=== PATIENT | female | born 2000 | race African-American/Black ===

== ENCOUNTER 2019-11-29 01:54 | Emergency (ER) | payer SELFPAY ==
[2019-11-29 02:02] VITALS: BP 120/76; PULSE 94; RESP 27; TEMP 37; O2SAT 100
[2019-11-29 02:30] VITALS: BP 117/64; PULSE 74; RESP 19; TEMP 36.3; O2SAT 100
--- NOTE | 2019-11-29 02:38 | PC.NURSE ---
PT REQUESTING TO LEAVE AT THIS TIME. STATES SHE IS NOT ANXIOUS ANYMORE.
--- NOTE | 2019-11-29 02:49 | ED.ANXIETY ---
HPI - Anxiety General Chief Complaint: Anxiety Stated Complaint: anxiety Time Seen by Provider: 11/29/19 02:36 History of Present Illness HPI narrative: Patient presents to the ED after an argument with her and hyperventilation. She says she has medicine for anxiety but does not like to take it. She also complains of right wrist pain from his brain a week ago, and left ankle pain from a sprain that she can hardly bear weight. She has been using Delgado bandage on her wrist. She does not wish to have x-rays or an evaluation of those. She also complains of recurrent A. fib. She has been given medicines in the past that she does not want to take. She also has asthma and is about out of her inhaler. She would like a refill on her inhaler. She had 2 alcoholic beverages tonight. She does not wish to stop smoke. complaint: anxiety Onset (ago): hour(s) Related Data Allergies Allergy/AdvReac Type Severity Reaction Status Date / Time acetaminophen [From Tylenol] Allergy Hives Verified 11/29/19 02:07 Penicillins Allergy Rash Verified 11/29/19 02:07 Review of Systems Review of Systems: Narrative: CONSTITUTIONAL: Denies fever, chills, or sweats. EYES: Denies visual changes, redness, or discharge. ENT: Denies rhinorrhea, congestion, sore throat, or otalgia. CARDIOVASCULAR: Denies chest pain, palpitations, or edema. RESPIRATORY: Denies cough or dyspnea. GASTROINTESTINAL: Denies abdominal pain, nausea, vomiting, or diarrhea. GENITOURINARY: Denies dysuria or hematuria. SKIN: Denies rash or itching. MUSCULOSKELETAL: Denies back pain, but she does have joint pain. NEUROLOGIC: Denies headache, numbness, or weakness. PSYCHIATRIC: She has anxiety but not depression. [facility] Past Medical History Medical History (Updated 11/29/19 @ 02:54 by Debby Miles MD) Acute anxiety Surgical History Surgical History (Updated 11/29/19 @ 02:54 by Debby Miles MD) History of knee surgery Social History Social History (Updated 11/29/19 @ 02:54 by Debby Miles MD) Smoking status: Current every day smoker Alcohol intake: current Substance use: current Substance use type: marijuana Gender identity (if verbalized by the patient): Female Exam Narrative: Exam Narrative: GENERAL: Well-appearing, well-nourished, and in no acute distress. Beautiful skin. Tattoo on the right upper arm. HEAD: Normocephalic, atraumatic. EYES: PERRLA and EOMI. ENT: Nares clear, no rhinorrhea or epistaxis. Mucous membranes moist. NECK: Supple. CHEST: Clear to auscultation. No respiratory distress. HEART: Regular rate and rhythm. No murmur heard. Normal peripheral pulses. ABDOMEN: Soft, nontender, nondistended, normal active bowel sounds. EXTREMITIES: Normal range of motion. No edema. Tenderness on the left lateral ankle. SKIN: Warm, dry, no rash. NEURO: No focal deficits. Alert and oriented x3. PSYCH: Normal mood and affect. Course Vital Signs Vital signs: Vital Signs Temperature 98.6 F 11/29/19 02:02 Pulse Rate 94 11/29/19 02:02 Respiratory Rate 27 H 11/29/19 02:02 Blood Pressure 120/76 11/29/19 02:02 Pulse Oximetry 100 11/29/19 02:02 Temperature 97.3 F L 11/29/19 03:26 Pulse Rate 81 11/29/19 03:26 Respiratory Rate 19 11/29/19 03:26 Blood Pressure 115/62 11/29/19 03:26 Pulse Oximetry 100 11/29/19 03:26 MDM - Anxiety Differential Diagnosis Differential diagnosis: Likely hyperventilation, panic disorder and acute anxiety Medical Records Attestation: I reviewed the patient's medical records. Discharge Plan Discharge Clinical Impression: Acute anxiety, Hyperventilation Left ankle sprain Qualifiers: Encounter type: initial encounter Involved ligament of ankle: unspecified ligament Qualified Code(s): S93.402A - Sprain of unspecified ligament of left ankle, initial encounter Right wrist sprain Qualifiers: Encounter type: initial encounter Qualified Code(s): S63.501A - Unspecified sprain of
[2019-11-29 03:26] VITALS: BP 115/62; PULSE 81; RESP 19; TEMP 36.3; O2SAT 100
== END 2019-11-29 03:26 | disposition home or self-care (01) ==
PROVIDERS: Emergency Provider Emergency Medicine
DX: F41.9 Anxiety disorder, unspecified (principal); R06.4 Hyperventilation; S93.402A Sprain of unspecified ligament of left ankle, initial encounter; X58.XXXA Exposure to other specified factors, initial encounter; S63.501A Unspecified sprain of right wrist, initial encounter; J45.909 Unspecified asthma, uncomplicated; F17.200 Nicotine dependence, unspecified, uncomplicated
CPT/HCPCS: 99283